=== PATIENT | female | born 2000 | race Asian ===

== ENCOUNTER 2021-02-14 15:43 | Emergency (ER) | payer BC ==
[~2021-02-14] VITALS: Ht 162.6 cm; Wt 48.0 kg
[2021-02-14] MEDS ORDERED: ONDANSETRON HCL 4MG/2ML INJ IV STA (16:05)
[2021-02-14] MEDS ORDERED: SODIUM CHLORIDE 0.9% 1,000 ML IV ONE ×2 (16:15→18:15)
[2021-02-14 16:51] LABS: CHLORIDE 102 mEq/L (98-107)
[2021-02-14 16:52] LABS: BASOPHILS % 0.7 % (0.0-2.0); EOSINOPHILS % 0.3 % (0.0-5.0); HEMATOCRIT. 52.2 % (36.0-48.0); HEMOGLOBIN. 17.5 g/dL (12.0-16.0); LYMPHOCYTES % 14.8 % (20.0-50.0); MEAN CORPUSCULAR HEMOGLOBIN 31.9 pg (28.0-32.0); MEAN PLATELET VOLUME 7.5 fl (7.4-10.4); MONOCYTES % 5.4 % (2.0-8.0); NEUTROPHILS % 78.8 % (40.0-76.0); PLATELET 379 x1000/uL (130-400); RED CELL DISTRIBUTION WIDTH 13.7 % (11.6-14.6)
[2021-02-14] MEDS ORDERED: DEXTROSE 50% WATER 50ML SYRINGE IV ONE (18:00)
[2021-02-14] MEDS ORDERED: ONDA4TAB5 MT (19:05)
[2021-02-14 19:40] VITALS: BP 107/64
== END 2021-02-14 19:41 | disposition home or self-care (01) ==
LOC: EDBD 15:43 → ER 15:43
DX: E86.0 Dehydration (principal); Z98.890 Other specified postprocedural states
CPT/HCPCS: 36415; 80053; 82962; 84443; 85025; 93005; 96361; 96374; 96375; 99284; J2405; J7030